=== PATIENT | male | born 1965 | race Caucasian/White ===

== ENCOUNTER 2019-10-17 17:24 | Emergency (ER) | payer BC, SELFPAY ==
[2019-10-17 17:48] VITALS: BP 196/106; PULSE 68; RESP 16; TEMP 36.2; O2SAT 99
--- NOTE | 2019-10-17 17:58 | ED.DENTAL ---
HPI - Dental/Oral General Chief complaint: Dental/Oral Stated complaint: tooth abscess Time Seen by Provider: 10/17/19 17:58 Source: patient Mode of arrival: ambulatory Limitations: no limitations History of Present Illness HPI Narrative: Wilton Moreno is a 54 yo male with PMH of HTN, hypothyroid, who comes to express care with dental pain. Has an appt on the with a dentist Related Data Home Medications Medication Instructions Recorded Confirmed Flax Seed Oil 10/17/19 Reservitrol 10/17/19 carvedilol 25 mg PO BID 10/17/19 10/17/19 levothyroxine 75 mcg PO DAILY 10/17/19 10/17/19 losartan 50 mg PO DAILY 10/17/19 10/17/19 Allergies Allergy/AdvReac Type Severity Reaction Status Date / Time No Known Allergies Allergy Verified 10/17/19 17:28 Review of Systems Review of Systems: Narrative: CONSTITUTIONAL: Denies fever, chills, sweats. EYES: Denies visual changes, redness, discharge. ENT: Denies rhinorrhea, congestion, sore throat, otalgia.Dental pain on R- thinks it is an abscess CARDIOVASCULAR: Denies chest pain, palpitations, edema. RESPIRATORY: Denies dyspnea, wheezing, cough GASTROINTESTINAL: Denies abdominal pain, nausea, vomiting, diarrhea. GENITOURINARY: Denies dysuria, hematuria, abnormal discharge SKIN: Denies rash or itching. NEUROLOGIC: Denies numbness, or focal weakness. PSYCHIATRIC: Denies anxiety or depression. PMFSH Family History Family History Other Heart disease Hypertension Social History Social History (Updated 10/17/19 @ 18:29 by Milagros Diaz CNP) Smoking status: Former smoker Substance use: never Comments At time of signature, I agree with nursing past medical, surgical, social and family history. There is no relevant family history pertinent to the presenting complaint. Exam Narrative: Exam Narrative: GENERAL: This is a well-nourished, well-developed patient, in mild distress. HEAD: normocephalic, atraumatic. EYES: Sclera clear/white. Vision is grossly intact. EARS: External ears normal, . Hearing grossly intact. NOSE: External nose normal without nasal discharge, nares without redness, no rhinorrhea. THROAT: Mucous membranes moist, dental pain- lump on R lower jaw NECK: Neck supple, non-tender CARDIOVASCULAR: Regular rate and rhythm without murmurs, gallops, or rubs. RESPIRATORY: Clear to auscultation. Breath sounds equal bilaterally. No wheezes, rales, or rhonchi. GASTROINTESTINAL: Abdomen soft, SKIN: warm, intact with no suspicious lesions or rash, good texture and turgor. NEURO: awake, alert, and oriented to person, place and time. There were no obvious focal neurologic abnormalities. Steady gait EXTREMITIES: Normal range of motion. BACK: Nontender without deformity Course Course Emergency Course: Started on clindamycin for infection given Zofran to help control nausea Taking Naprosyn 500 twice daily at home for pain Follow-up with dental appointment on the Vital Signs Vital signs: Vital Signs Temperature 97.1 F L 10/17/19 17:48 Pulse Rate 68 10/17/19 17:48 Respiratory Rate 16 10/17/19 17:48 Blood Pressure 196/106 H 10/17/19 17:48 Pulse Oximetry 99 10/17/19 17:48 Temperature 97.1 F L 10/17/19 17:48 Pulse Rate 68 10/17/19 17:48 Respiratory Rate 16 10/17/19 17:48 Blood Pressure 165/110 H 10/17/19 18:40 Pulse Oximetry 99 10/17/19 17:48 MDM - Dental/Oral Differential Diagnosis Differential diagnosis: Likely dental caries, dental abscess and other Discharge Plan Discharge Clinical Impression: Dental abscess Patient Disposition: Home, Self-Care Condition: Stable Instructions: Antibiotic Form, Dental Abscess (ED) Prescriptions: New clindamycin HCl 300 mg capsule 300 mg PO Q8H Qty: 30 RF: 0 ondansetron HCl [Zofran] 4 mg tablet 4 mg PO Q8H PRN (Reason: nausea and vomiting) Qty: 14 RF: 0 No Action losartan 50 mg Tablet
[2019-10-17 18:40] VITALS: BP 165/110
== END 2019-10-17 18:39 | disposition home or self-care (01) ==
PROVIDERS: Emergency Provider Nurse Practitioner
DX: K04.7 Periapical abscess without sinus (principal); Z87.891 Personal history of nicotine dependence; I10 Essential (primary) hypertension; E03.9 Hypothyroidism, unspecified
CPT/HCPCS: 99203; G0463